=== PATIENT | female | born 1960 | race Caucasian/White ===

== ENCOUNTER 2016-09-26 05:10 | Day surgery (SDC) | payer BC, OTHER ==
[2016-09-22 16:30] VITALS: BMI 30.9
--- NOTE | 2016-09-23 13:48 | HP ---
[facility] - Chief Complaint Chief Complaint: Abnormal uterine bleeding . History of Present Illness: This patient missed her period in July 2016 and then got period in 09/05.A subseqent sonogram of the pelvis was done and demonstrated an abnormal endometrial lining suggestive of endometrial hyperplasia. History Source: Patient Limitations to Obtaining History: No Limitations - Past Medical History Allergies/Adverse Reactions: Allergies Allergy/AdvReac Type Severity Reaction Status Date / Time No Known Allergies Allergy Verified 09/22/16 16:31 [employer]: No: Alzheimer's, CVA, Dementia, Migraine, Multiple Sclerosis, Peripheral Neuropathy, Parkinson's, Seizure, Syncope, TIA, Vertigo, Other Cardiovascular: No: AFIB, Aneurysm, Aortic Insufficiency, Aortic Stenosis, CAD, CHF, Deep Vein Thrombosis, HTN, Hyperlipdemia, MS, Mitral Insufficiency, Mitral Stenosis, Murmur, Pulmonary Hypertension, Other Pulmonary: No: Asthma, Bronchitis, Cancer, COPD, O2 Dependent, Pneumonia, Previously Intubated, Pulmonary Embolus, Pulmonary Fibrosis, Sleep Apnea, Other Gastrointestinal: No: Ascites, Cancer, Constipation, Crohn's Disease, Diverticulitis, Diverticulosis, Esophageal Varices, Gastritis, GERD, GI Bleed, Hemorrhoids, Hiatal Hernia, Inflamatory Bowel Disease, Irritable Bowel Disease, Pancreatitis, Peptic Ulcer Disease, Ulcerative Colitis, Other Hepatobiliary: No: Cirrhosis, Cholelithiasis, Cholecystitis, Choledocholithiasis , Hepatitis A, Hepatitis B, Hepatitis C, Other Renal/: No: Renal Failure, Renal Inusuff, BPH, Cancer, Hematuria, Hemodialysis , Neurogenic Bladder, Renal Calculi, UTI, Other Reproductive: No: Ectopic , Endometriosis, Fibroids, PID, Polycystic Ovary Syndrome, Postmenopausal, Other ...LMP: 09/02/16 ...: 3 ...Para: 3 Heme/Onc: No: Anemia, B12 Deficiency, Bleeding Disorder, Cancer, Current Chemotherapy, Current Radiation Therapy, Hemochromatosis, Hypercoaguable State, Myeloproliferative Synd, Sickle Cell Disease, Sickle Cell Trait, Thrombocytopenia, Other Infectious Disease: No: AIDS, C-Diff, Herpes Zoster, HIV, MRSA, STD's, Tuberculosis, VREF, Other Musculoskeletal: No: Bursitis, Chronic low back pain, Hemiparesis, Hemiplegia, Osteoarthritis, Paraplegia, Other Rheumatology: No: Fibromyalgia, Gout, Lupus, Rheumatoid Arthritis, Sarcoidosis, Vasculitis, Other ENT: No: Allergic Rhinitis, Sinusitis, Other Endocrine: No: Sangamon's Disease, Kilo's Disease, Diabetes Insipidus, Diabetes Mellitus, Hyperparathyroidism, Hyperthyroidism, Hypothyroidism, Osteopenia, SIADH, Other Dermatology: No: Basal Cell, Cellulitis, Eczema, Melanoma, Psoriasis, Squamous Cell, Other (hypertension) - Current Medications Current Medications: Home Medications Medication Instructions Recorded Amlodipine Besylate [Norvasc -] 5 mg PO DAILY 09/22/16 Atorvastatin Ca [Lipitor] 20 mg PO HS 09/22/16 Ergocalciferol (Vitamin D2) 2,000 unit PO DAILY 09/22/16 [Vitamin D2] Flaxseed/Omega3,6,9/Fatty Acid 1 each PO DAILY 09/22/16 [Flax Seed Oil 1,300 mg Softgel] Crosby-3 Fatty Acids/Fish Oil [Fish 1 each PO DAILY 09/22/16 Oil 1,000 mg Softgel] Ubidecarenone [Co Q-10] 100 mg PO DAILY 09/22/16 Satellite Physical Exam - Physical Examination General Appearance: Well Nourished, Well Developed, Alert & Oriented x3 ENT: Clear, No Discharge, No masses Lung: Clear to auscultation Heart: Regular rate & rhythm, Normal S1, Normal S2 Breasts: Soft, Non-Tender, No masses bilaterally Abdomen: Soft, No tenderness, No CVA Extremities: No edema, No tenderness/swelling Pelvic Exam: Within normal limits External Genitalia, Within normal limits Vagina, Within normal limits Cervix, Within normal limits Uterus, Within normal limits [place]: Intact, Alert, Oriented Satellite Impression/Plan - Impression/Plan Impression: Abnormal uterine bleeding with possible endometrial hyperplasia Operative Procedure: Hysteroscopy with D/C Date to be Performed: 09/26/16
[2016-09-26] MEDS ORDERED: MIDAZOLAM HCL 2 MG/2 ML SINGLE DOSE VIAL ONE (07:32)
[2016-09-26] MEDS ORDERED: PROPOFOL 20 ML ONE ×4 (07:32→08:17)
[2016-09-26] MEDS ORDERED: SUCCINYLCHOLINE CHLORIDE 200 MG/10 ML VIAL ONE (07:32)
[2016-09-26] MEDS ORDERED: SEVOFLURANE 250 ML BTL ONE (07:42)
[2016-09-26] MEDS ORDERED: ONDANSETRON 4 MG/2 ML VIAL IVPUSH PRN (08:53)
[2016-09-26] MEDS ORDERED: KETOROLAC TROMETHAMINE 30 MG/1 ML VIAL IVPUSH ONE (08:53)
[2016-09-26] MEDS ORDERED: LACTATED RINGERS SOLUTION 1,000 ML IV SCH (09:00)
[2016-09-26 09:17] VITALS: TEMP 97.8
[2016-09-26] MEDS ORDERED: FLAXSEED PO SCH (10:00)
[2016-09-26] MEDS ORDERED: [UNRECOGNIZED DRUG - OTHER] PO SCH (10:00)
[2016-09-26] MEDS ORDERED: PATIENT'S OWN MEDICATION (NON-FORMULARY) (Ergocalciferol (Vitamin D2) [Vitamin D2] 2,000 U PO SCH (10:00)
[2016-09-26] MEDS ORDERED: FATTY ACID PO SCH (10:00)
[2016-09-26] MEDS ORDERED: OMEGA3 PO SCH (10:00)
[2016-09-26] MEDS ORDERED: PATIENT'S OWN MEDICATION (NON-FORMULARY) (Ubidecarenone [Co Q-10] 100 MG) PO SCH (10:00)
--- NOTE | 2016-09-26 10:33 | OP ---
DATE OF OPERATION: 09/26/2016 PREOPERATIVE DIAGNOSIS: Abnormal uterine bleeding. POSTOPERATIVE DIAGNOSIS: Abnormal uterine bleeding. OPERATIVE PROCEDURE: Hysteroscopy, dilation and curettage. SURGEON: Jered Colón MD ANESTHESIA: MAC given by anesthesiologist. ESTIMATED BLOOD LOSS: Approximately 20 mL. DESCRIPTION OF PROCEDURE: The patient was brought to the operating room and placed in the supine position, given MAC anesthesia by the anesthesiologist, placed in the lithotomy position. Prepped and draped in the usual manner. The patient was examined. Uterus was noted to be in the midline. Normal size. Adnexa negative. The speculum was placed into the vagina. The anterior lip of the cervix was grasped with a tenaculum. The uterus was sounded to 11 cm. Hysteroscopy was performed. The patient was noted to have abundant endometrial tissue and blood clots inside the uterus. A dilation and curettage was carried out with a medium-sized curette. There was about 20 mL of bleeding. Much tissue was obtained from the endometrial cavity. Some of the tissue appeared polypoid in nature. The procedure went well. The patient did well. The hemostasis was good at the end of the procedure. The estimated blood loss was approximately 20 mL. The speculum was removed from the vagina, the tenaculum from the cervical, and the patient was transferred to the recovery room after the completion of the operation. JERED COLÓN M.D. [id number]
[2016-09-26 10:54] VITALS: BP 128/85; PULSE 90
[2016-09-26] MEDS ORDERED: ATORVASTATIN CA 20 MG TABLET (FP) PO SCH (22:00)
[2016-09-27] MEDS ORDERED: amLODIPine BESYLATE 5 MG TABLET (FP) PO SCH (10:00)
--- NOTE | 2016-09-27 11:06 | PATH ---
Surgical Pathology Report Patient Name: SARAH MOSS [facility]. Rec. #: [id number] /Age/Gender: 1960 (Age: 55) / F Account: [id number] Location: [facility] SURGICAL Taken: 09/26/2016 Received: 09/26/2016 Reported: 09/27/2016 Physicians: [place] Colón M.D. Specimen(s) Received A: ENDOMETRIAL CURETTINGS B: POLYPOID TISSUE C: ENDOCERVICAL CURETTINGS Clinical History Irregular menstruation Final Diagnosis A. ENDOMETRIUM, CURETTING: DYSSYNCHRONOUS ENDOMETRIUM WITH AREAS OF STROMAL AND GLANDULAR BREAKDOWN, AND FOCAL AREAS SUGGESTIVE OF BENIGN ENDOMETRIAL POLYP. PORTIONS OF BENIGN ENDOCERVICAL POLYP PRESENT. NO ENDOMETRIAL HYPERPLASIA OR CARCINOMA IDENTIFIED. B. CERVIX, POLYPECTOMY: BENIGN ENDOCERVICAL POLYP WITH ACUTE AND CHRONIC INFLAMMATION. C. ENDOCERVIX, CURETTING: BENIGN ENDOCERVICAL TISSUE AND BLOOD. Electronically Signed James Bronson M.D. Gross Description A. Received in formalin labeled "endometrial curettings," is a 4.0 x 3.4 x 0.5 cm aggregate of lopez-brown soft tissue fragments. The formalin is filtered and the specimen is entirely submitted in one cassette. B. Received in formalin labeled "polypoid tissue," is a 1.2 x 0.9 x 0.3 cm lopez, polypoid portion of soft tissue. The specimen is submitted in toto in one cassette. C. Received in formalin labeled "endocervical curettings," is a 0.5 x 0.5 x 0.2 cm aggregate of lopez-brown soft tissue fragments. The formalin is filtered and the specimen is entirely submitted in one cassette. 09/26/201609/26/2016
== END 2016-09-26 11:00 | disposition home or self-care (01) ==
LOC: JASU-SURG 05:10
PROVIDERS: ATTEND Obstetrics & Gynecology
PROC: 0UDB8ZX Extraction of Endometrium, Via Natural or Artificial Opening Endoscopic, Diagnostic (ICD-10-PCS; principal; 2016-09-26 08:00)
DX: N93.9 Abnormal uterine and vaginal bleeding, unspecified (principal)
CPT/HCPCS: 84703; 88305-TC; 94760